=== PATIENT | female | born 1990 | race Caucasian/White ===

== ENCOUNTER 2018-05-04 13:34 | Outpatient (REF) | payer BC, SELFPAY ==
--- NOTE | 2018-05-04 11:50 | PAPFT_PTH ---
PATIENT: Brandy Montejo LOC: [facility] U#:[id number] AGE/SX: 28/F ROOM: RE05/04/[address]: SARITA Mary : 1990 BED: DIS: 05/04/2018 SPEC #: [id number] RECD: 05/07/18 12:55 STATUS: NILSA RENehal #: [id number] CONSTANZA: 05/04/18 11:[address]: Татьяна Marrero DEPT: [facility] Cytology RECD BY: Yesy Pettit Tissues: 1 - CX/ENDOCX FOR PAP SMEARS Procedures: PAP THIN PREP/UVM Screening HPV DNA PROBE Comments: [id number] (CHLAMYDIA/GC)
[2018-05-08 14:43] LABS: Chlamydia Result Negative; GC Result Negative; Specimen Description SEE COMMENTS
== END 2018-05-04 13:54 ==
LOC: LBN 13:34
PROVIDERS: PCP Nurse Practitioner Family; Visit Provider Nurse Practitioner Family
DX: Z12.4 Encounter for screening for malignant neoplasm of cervix (principal); Z11.51 Encounter for screening for human papillomavirus (HPV)
CPT/HCPCS: 87491; 87591; 88142; 87624

== ENCOUNTER 2018-05-08 00:36 | Outpatient (CLI) | payer BC, SELFPAY ==
--- NOTE | 2018-05-08 13:50 | MERGE_ITS ---
*[facility]* *[facility]* [address] [place] [address] Date of study: 05/08/2018 Transthoracic Echocardiography M-mode, complete 2D, complete spectral Doppler, and color Doppler *STUDY CONCLUSIONS* Summary: 1. Left ventricle: The cavity size was normal. Wall thickness was normal. Systolic function was normal. The estimated ejection fraction was 60-65%. Wall motion was normal; there were no regional wall motion abnormalities. 2. Right ventricle: The cavity size was normal. Systolic function was normal. 3. Inferior vena cava: The vessel was patent and normal in size. The respirophasic diameter changes were in the normal range (greater than or equal to 50%), consistent with normal central venous pressure. *PATIENT PRESENTATION* Height: 157.5cm ((62in) ) S/D Pressure: 123 / 84 Weight: 59.9kg ((131.7lb) ) BSA: 1.63m^2 Test start time: 02:00 PM. Test stop time: 03:00 PM. PERFORMING Unknown PERFORMING [facility] FIELD STAFF RT Luciana Canales)(CT), [facility] ORDERING Татьяна Marrero REFERRING Татьяна Marrero *PROCEDURE DATA* Procedure information: This study was interpreted by [facility]. Pertinent images and digital data are archived for permanent storage and are available for subsequent review. No prior study was available for comparison. Study status: Routine. Transthoracic echocardiography. M-mode, complete 2D, complete spectral Doppler, and color Doppler. A Transthoracic Echocardiogram was performed. Scanning was performed from the parasternal, apical, subcostal, and suprasternal notch acoustic windows. Images were obtained using an [id number] cardiac ultrasound machine. Image quality was adequate. Study completion: The patient tolerated the procedure well. There were no complications. History: PMH: SOB . Holosystolic murmur. *CARDIAC ANATOMY* Left ventricle: The cavity size was normal. Wall thickness was normal. Systolic function was normal. The estimated ejection fraction was 60-65%. Wall motion was normal; there were no regional wall motion abnormalities. Diastolic parameters were normal. There was no evidence of elevated ventricular filling pressure by Doppler parameters. Aortic valve: Trileaflet; normal thickness leaflets. Mobility was not restricted. Doppler: Transvalvular velocity was within the normal range. There was no stenosis. There was no significant regurgitation. VTI ratio of LVOT to aortic valve: 0.78. Valve area (VTI): 2cm^2. Indexed valve area (VTI): 1.2cm^2/m^2. Peak velocity ratio of LVOT to aortic valve: 0.68. Valve area (Vmax): 1.7cm^2. Indexed valve area (Vmax): 1.1cm^2/m^2. Mean velocity ratio of LVOT to aortic valve: 0.7. Valve area (Vmean): 1.8cm^2. Indexed valve area (Vmean): 1.1cm^2/m^2. Mean gradient (S): 7.7mm Hg. Peak gradient (S): 14.9mm Hg. Aorta: Aortic root: The aortic root was normal in size. Ascending aorta: The ascending aorta was normal in size. Mitral valve: Structurally normal valve. Mobility was not restricted. Doppler: Transvalvular velocity was within the normal range. There was no evidence for stenosis. There was trivial regurgitation. Valve area by pressure half-time: 4.3cm^2. Indexed valve area by pressure half-time: 2.7cm^2/m^2. Peak gradient (D): 8mm Hg. Left atrium: The atrium was normal in size. Right ventricle: The cavity size was normal. Systolic function was normal. Pulmonic valve: Poorly visualized. Doppler: Transvalvular velocity was within the normal range. There was no evidence for stenosis. There was trivial regurgitation. Tricuspid valve: Structurally normal valve. Doppler: Transvalvular velocity was within the normal range. There was no evidence for stenosis. There was trivial regurgitation. Pulmonary artery: Poorly visualized. Systolic pressure could not be accurately estimated. Right atrium: The atrium was normal in size. Pericardium: There was no significant pericardial effusion. Systemic veins: Inferior vena cava: Well visualized. The vessel was patent and normal in size. The respirophasic diameter changes were in the normal range (greater than or equal to 50%), consistent with normal central venous pressure. Baseline ECG: Normal sinus rhythm. Measurements Left ventricle Value Reference LV ID, ED, PLAX 3.9 cm 3.5 - 6.0 LV ID, ES, PLAX 2.8 cm 2.1 - 4.0 LV PW thickness, ED, PLAX 0.8 cm LV end-diastolic volume, 1-p A2C 93 ml LV ejection fraction, 1-p A2C 67 % LV end-diastolic volume, 1-p A4C 79 ml LV ejection fraction, 1-p A4C 64 % LV e', lateral 0.182 m/sec LV E/e', lateral 8 LV e', medial 0.128 m/sec LV E/e', medial 11 LV e', average 0.155 m/sec LV E/e', average 9 Ventricular septum Value Reference IVS thickness, ED, PLAX 0.7 cm LVOT Value Reference LVOT ID, A-P 1.8 cm LVOT area 2.6 cm^2 LVOT peak velocity, S 1.31 m/sec LVOT mean velocity, S 0.92 m/sec LVOT VTI, S 27.2 cm LVOT peak gradient, S 6.8 mm Hg LVOT mean gradient, S 3.9 mm Hg Stroke volume (SV), LVOT DP 69 ml Stroke index (SV/bsa), LVOT DP 43 ml/m^2 Aortic valve Value Reference Aortic valve peak velocity, S 1.9 m/sec Aortic valve mean velocity, S 1.31 m/sec Aortic valve VTI, S 35.0 cm Aortic mean gradient, S 7.7 mm Hg Aortic peak gradient, S 14.9 mm Hg VTI ratio, LVOT/AV 0.78 Aortic valve area, VTI 2 cm^2 Velocity ratio, peak, LVOT/AV 0.68 Aortic valve area, peak velocity 1.7 cm^2 Velocity ratio, mean, LVOT/AV 0.7 Aortic valve area, mean velocity 1.8 cm^2 Aortic valve area/bsa, mean velocity 1.1 cm^2/m^2 Aorta Value Reference Aortic root ID, ED 2.3 cm Ascending aorta ID, A-P, S 2.4 cm RVOT Value Reference RVOT VTI, S 19.8 cm Left atrium Value Reference LA ID, A-P, ES 2.3 cm LA ID/bsa, A-P 1.4 cm/m^2 <=2.2 LA area, ES, A4C 14.4 cm^2 8.8 - 23.4 LA area, ES, A2C 16 cm^2 LA volume/bsa, ES, 1-p A4C 21 ml/m^2 LA volume, ES, 2-p 36 ml LA volume/bsa, ES, 2-p 22 ml/m^2 LA/aortic root ratio 0.99 Mitral valve Value Reference Mitral E-wave peak velocity 1.41 m/sec Mitral A-wave peak velocity 0.54 m/sec Mitral deceleration time 175 ms 150 - 230 Mitral pressure half-time 51 ms Mitral peak gradient, D 8 mm Hg Mitral E/A ratio, peak 2.61 Mitral valve area, PHT, DP 4.3 cm^2 Pulmonary veins Value Reference Pulmonary vein peak velocity, S 0.8 m/sec Pulmonary vein peak velocity, D 0.54 m/sec Pulmonary vein velocity ratio, peak, 1.5 S/D Pulmonary vein A-wave reversal peak 0.32 m/sec velocity Pulmonary vein A-wave reversal 141 ms duration Tricuspid valve Value Reference Tricuspid regurg peak velocity 2.2 m/sec Tricuspid peak RV-RA gradient 20.2 mm Hg Right atrium Value Reference RA area, ES, A4C 8.4 cm^2 8.3 - 19.5 Legend: (L) and (H) álvaro values outside specified reference range. I have personally reviewed the images and have reviewed and edited the reported findings. Electronically signed by Gray Norris 05/09/2018 12:54
[2018-05-08 15:58] LABS: Absolute Basophil Count 0.04 k/cumm (0.0-0.2); Absolute Eosinophil Count 0.04 k/cumm (0.0-0.7); Absolute Lymphocyte Count 1.46 k/cumm (1.2-3.4); Absolute Monocyte Count 0.48 k/cumm (0.11-0.7); Absolute Neutrophil Count 5.29 k/cumm (1.2-6.7); Basophils % 0.5; Eosinophils % 0.5; HCT 39.1 % (36.0-46.0); HGB 13.1 g/dL (12.0-15.5); Mean Corp. HGB Concentration 33.5 g/dL (32.0-36.0); Mean Corpuscular Hemoglobin 30.8 pg (27.0-33.0); Mean Platelet Volume 10.8 fL (8.0-11.0); Monocytes % 6.6; Neutrophils % 72.4; Platelet Count 351 x1000/uL (130-400); RBC 4.25 m/cumm (4.00-5.20); RBC Distribution Width 12.6 % (11.7-14.6); White Blood Cell Count 7.31 k/cumm (4.4-10.8)
[2018-05-08 16:19] LABS: ALT 17 U/L (12-78); AST 11 U/L (15-37); Albumin 4.1 g/dL (3.4-5.0); Anion Gap 5.6 mmol/L (3-11); BUN 5 mg/dL (7-18); CO2 29.4 mmol/L (21.0-32.0); CREATININE 0.69 mg/dL (0.55-1.02); Calcium 9.2 mg/dL (8.5-10.1); Chloride 105 mmol/L (98-107); Glucose 104 mg/dL (70-100); Potassium 3.6 mmol/L (3.5-5.1); Sodium 140 mmol/L (136-145)
[2018-05-08 16:55] LABS: Alkaline Phosphatase 48 U/L (46-116); Bilirubin, Total 0.5 mg/dL (0.2-1.0); TSH (W/Ref FT4) 1.82 uIU/mL (0.358-3.74); Total Protein 7.2 g/dL (6.4-8.2)
[2018-05-10 08:29] LABS: Hepatitis C Ab w Rflx HCV PCR Negative (NEGAT)
[2018-05-10 09:15] LABS: HIV-1/2 Ag & Ab Screen Negative (NEGAT)
[2018-05-10 11:29] LABS: Syphilis Serology (RPR) Negative (Negative)
[2018-05-10 18:05] LABS: Hemoglobin A1C 4.8 % (4.5-6.2)
[2018-05-11 13:30] LABS: Hepatitis B Surface Ag Negative (NEGAT)
== END 2018-05-08 00:56 ==
PROVIDERS: PCP Nurse Practitioner Family; Visit Provider Nurse Practitioner Family
DX: R06.02 Shortness of breath (principal); R01.1 Cardiac murmur, unspecified; Z11.4 Encounter for screening for human immunodeficiency virus [HIV]; Z11.59 Encounter for screening for other viral diseases; Z01.84 Encounter for antibody response examination; Z91.89 Other specified personal risk factors, not elsewhere classified; R73.09 Other abnormal glucose
CPT/HCPCS: 36415; 80053; 86803; 87340; 87389; 83036; 84443; 85025; 86592; 93306

== ENCOUNTER 2020-11-09 14:18 | Outpatient (REF) | payer BC, SELFPAY ==
--- NOTE | 2020-11-09 13:48 | PAPFT_PTH ---
PATIENT: Brandy Montejo LOC: [facility] U#:[id number] AGE/SX: 30/F ROOM: RE11/09/[address]: SARITA Mary : 1990 BED: DIS: 11/09/2020 SPEC #: [id number] RECD: 11/10/20 12:55 STATUS: NILSA ORTEZ #: [id number] CONSTANZA: 11/09/20 13:[address]: Татьяна Marrero DEPT: [facility] Cytology RECD BY: Yesy Pettit Tissues: 1 - CX/ENDOCX FOR PAP SMEARS Procedures: PAP THIN PREP/[facility] Screening Comments: [id number]
== END 2020-11-09 14:19 | disposition home or self-care (01) ==
LOC: LBN 14:18
PROVIDERS: PCP Nurse Practitioner Family; Visit Provider Nurse Practitioner Family
DX: Z12.4 Encounter for screening for malignant neoplasm of cervix (principal); Z11.51 Encounter for screening for human papillomavirus (HPV)
CPT/HCPCS: 88142

== ENCOUNTER 2021-01-29 08:00 | Outpatient (REF) | payer BC, SELFPAY ==
[2021-01-31 13:09] LABS: COVID-19 RT-PCR UVMMC Result Negative (Negative)
== END 2021-01-29 08:01 | disposition home or self-care (01) ==
LOC: LBN 08:00
PROVIDERS: PCP Nurse Practitioner Family; Visit Provider Emergency Medicine
DX: Z20.822 Contact with and (suspected) exposure to COVID-19 (principal); R05 Cough
CPT/HCPCS: U0003

== ENCOUNTER 2021-03-12 02:39 | Outpatient (CLI) | payer BC, SELFPAY ==
[2021-03-12 16:44] LABS: Abs Immature Grans 0.02 10^3/uL (0.0-0.06); Absolute Basophil Count 0.08 10^3/uL (0.0-0.2); Absolute Eosinophil Count 0.11 10^3/uL (0.0-0.7); Absolute Lymphocyte Count 2.46 10^3/uL (1.2-3.4); Absolute Monocyte Count 0.52 10^3/uL (0.1-0.8); Absolute Neutrophil Count 3.45 10^3/uL (1.2-6.7); Basophils % 1.2; Eosinophils % 1.7; HCT 40.3 % (36.0-46.0); HGB 13.4 g/dL (11.2-15.7); Immature Grans % 0.3; MCHC 33.3 % (32.0-36.0); MCV 90.2 fL (80-95); MPV 9.8 fL (8.0-11.0); Monocytes % 7.8; Nucleated RBC 0 %; Platelet Count 388 10^3/uL (130-400); RBC 4.47 10^6/uL (3.93-5.22); RDW 12.2 % (11.7-14.6); RDW-SD 40.7 fL; WBC 6.64 10^3/uL (4.4-10.8)
[2021-03-12 18:31] LABS: ALT 18 U/L (14-59); AST 13 U/L (15-37); Albumin 4.2 g/dL (3.4-5.0); Alkaline Phosphatase 50 U/L (46-116); Anion Gap 8.3 mmol/L (3-11); BUN 5 mg/dL (7-18); Bilirubin, Total 0.5 mg/dL (0.2-1.0); CO2 27.7 mmol/L (21.0-32.0); CREATININE 0.7 mg/dL (0.55-1.02); Calcium 9.2 mg/dL (8.5-10.1); Chloride 102 mmol/L (98-107); Glucose 89 mg/dL (74-106); Potassium 3.9 mmol/L (3.5-5.1); Sodium 138 mmol/L (136-145); TSH (W/Ref FT4) 1.89 uIU/mL (0.36-3.74); Total Protein 7.5 g/dL (6.4-8.2)
[2021-03-12 18:51] LABS: Calculated LDL 87 mg/dL (<100); Cholesterol 204 mg/dL (<200); HDL Cholesterol 110 mg/dL (40-60); Triglyceride 39 mg/dL (<150)
[2021-03-15 10:24] LABS: Lyme Ab w Rflx to Lyme Confirm Negative (Negative)
[2021-03-16 17:41] LABS: Anaplasma phagocytophilum Negative (Negative); B. miyamotoi PCR Negative (Negative); Babesia divergens/MO-1 Negative (Negative); Babesia duncani Negative (Negative); Babesia microti Negative (Negative); Ehrlichia chaffeensis Negative (Negative); Ehrlichia ewingii/canis Negative (Negative); Ehrlichia muris eauclairensis Negative (Negative)
== END 2021-03-12 02:40 | disposition home or self-care (01) ==
LOC: LBO 02:39
PROVIDERS: PCP Nurse Practitioner Family; Visit Provider Nurse Practitioner Family
DX: W57.XXXA Bitten or stung by nonvenomous insect and other nonvenomous arthropods, initial encounter (principal); T14.8XXA Other injury of unspecified body region, initial encounter; Z00.00 Encounter for general adult medical examination without abnormal findings; Z13.220 Encounter for screening for lipoid disorders
CPT/HCPCS: 36415; 80053; 80061; 87798; 84443; 85025; 86618

== ENCOUNTER 2023-03-31 01:07 | Outpatient (CLI) | payer OTHER, SELFPAY ==
[2023-03-31 15:55] LABS: Abs Immature Grans 0.01 10^3/uL (0.0-0.06); Absolute Basophil Count 0.06 10^3/uL (0.0-0.2); Absolute Eosinophil Count 0.08 10^3/uL (0.0-0.7); Absolute Lymphocyte Count 2.66 10^3/uL (1.2-3.4); Absolute Neutrophil Count 4.69 10^3/uL (1.2-6.7); Basophils % 0.8; HCT 39.1 % (36.0-46.0); HGB 13.7 g/dL (11.2-15.7); Immature Grans % 0.1; Lymphocytes % 33.3; MCH 30.9 pg (27.0-33.0); MCV 88 fL (80-95); MPV 10.4 fL (8.0-11.0); Monocytes % 6.3; Neutrophils % 58.5; Platelet Count 313 10^3/uL (130-400); RBC 4.44 10^6/uL (3.93-5.22); RDW 11.9 % (11.7-14.6); RDW-SD 38.6 fL
[2023-03-31 17:14] LABS: ALT 16 U/L (14-59); AST 12 U/L (15-37); Albumin 4.2 g/dL (3.4-5.0); Alkaline Phosphatase 40 U/L (46-116); Anion Gap 11.5 mmol/L (3-11); BUN 9 mg/dL (7-18); Bilirubin, Total 1.3 mg/dL (0.2-1.0); CO2 24.5 mmol/L (21.0-32.0); CREATININE 0.7 mg/dL (0.55-1.02); Calcium 9.3 mg/dL (8.5-10.1); Calculated LDL 84 mg/dL (<100); Chloride 99 mmol/L (98-107); Cholesterol 210 mg/dL (<200); Estimated GFR 117.77 (mL/min/1.73m2); Glucose 79 mg/dL (74-106); HDL Cholesterol 118 mg/dL (40-60); Sodium 135 mmol/L (136-145); TSH (W/Ref FT4) 1.43 uIU/mL (0.36-3.74); Total Protein 7.7 g/dL (6.4-8.2); Triglyceride 43 mg/dL (<150)
== END 2023-03-31 01:08 | disposition home or self-care (01) ==
PROVIDERS: PCP Nurse Practitioner Family; Visit Provider Nurse Practitioner Family
DX: Z00.00 Encounter for general adult medical examination without abnormal findings (principal)
CPT/HCPCS: 36415; 80053; 80061; 84443; 85025

== ENCOUNTER 2023-04-06 01:30 | Outpatient (CLI) | payer OTHER, SELFPAY ==
[2023-04-06 12:33] LABS: ALT 15 U/L (14-59); AST 14 U/L (15-37); Albumin 3.9 g/dL (3.4-5.0); Alkaline Phosphatase 39 U/L (46-116); Anion Gap 10.1 mmol/L (3-11); BUN 12 mg/dL (7-18); Bilirubin, Total 0.5 mg/dL (0.2-1.0); CO2 25.9 mmol/L (21.0-32.0); CREATININE 0.8 mg/dL (0.55-1.02); Calcium 8.7 mg/dL (8.5-10.1); Chloride 99 mmol/L (98-107); Estimated GFR 100.33 (mL/min/1.73m2); Glucose 96 mg/dL (74-106); Potassium 3.7 mmol/L (3.5-5.1); Sodium 135 mmol/L (136-145); Total Protein 7.2 g/dL (6.4-8.2)
== END 2023-04-06 01:31 | disposition home or self-care (01) ==
LOC: LOS 01:30
PROVIDERS: PCP Nurse Practitioner Family; Visit Provider Nurse Practitioner Family
DX: E87.1 Hypo-osmolality and hyponatremia (principal); F41.1 Generalized anxiety disorder
CPT/HCPCS: 36415; 80053

== ENCOUNTER 2024-04-25 15:34 | Outpatient (REF) | payer OTHER, SELFPAY ==
--- NOTE | 2024-04-25 14:00 | PAPFT_PTH ---
PATIENT: Brandy Montejo LOC: [facility] U#:[id number] AGE/SX: 34/F ROOM: RE04/25/[address]: Paulina De Leon NP : 1990 BED: DIS: 04/25/2024 SPEC #: [id number] RECD: 04/26/24 12:35 STATUS: NILSA RENehal #: [id number] CONSTANZA: 04/25/24 14:[address]: Paulina De Leon DEPT: [facility] Cytology RECD BY: Yesy Pettit ENTERED: 04/26/24 12:35 SP TYPE: PAPFT KONSTANTIN DR: Татьяна Marrero, PATIENTS TRANSPORTER Tissues: 1 - CX/ENDOCX FOR PAP SMEARS Procedures: PAP THIN PREP/UVM Screening HPV DNA PROBE Comments: [id number] (HPV 16 & 18/45)
== END 2024-04-25 15:35 | disposition home or self-care (01) ==
LOC: LBN 15:34
PROVIDERS: PCP Nurse Practitioner Family; Visit Provider Nurse Practitioner Family
DX: Z12.4 Encounter for screening for malignant neoplasm of cervix (principal)
CPT/HCPCS: 88142; 87624